=== PATIENT | female | born 1995 ===

== ENCOUNTER → 2021-01-19 11:47 | Outpatient (CLI) | payer BC, SELFPAY ==
[2021-01-19 20:01] LABS: COVID19 - ORCAS (NP or Nasal) Negative (Negative)
== END ==
PROVIDERS: PCP Physician Assistant Medical; Visit Provider Physician Assistant Medical
DX: Z20.822 Contact with and (suspected) exposure to COVID-19 (principal)
CPT/HCPCS: U0003